=== PATIENT | male | born 1945 | race Caucasian/White ===

== ENCOUNTER 2016-11-20 06:28 | Inpatient (IN) ==
--- NOTE | 2016-11-20 07:07 | History and Physical Update ---
History and Physical Update - History and Physical H&P was reviewed, the patient examined and there: are no changes in the patients condition since last H&P was completed. - Dictation Physical: refer to scanned H&P - Physical Exam Mental Status: alert and oriented Heart: regular rate and rhythm Lung: clear to auscultation
--- NOTE | 2016-11-20 07:53 | EKG Report ---
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
--- NOTE | 2016-11-20 11:29 | Cardiology History & Physical ---
<Rebecca Barrios E - Last Filed: 11/20/16 11:46> Assessment and Plan - Time spent with patient Time spent with patient: Greater than 30 minutes (1) Atrial fibrillation Status: Acute Assessment and plan: SEE PLAN OF CARE LISTED BELOW Current Visit: Yes (2) Hypertension Status: Chronic Assessment and plan: SEE PLAN OF CARE LISTED BELOW Current Visit: Yes (3) Dyslipidemia Status: Chronic Assessment and plan: SEE PLAN OF CARE LISTED BELOW Current Visit: Yes (4) Diabetes Status: Chronic Assessment and plan: SEE PLAN OF CARE LISTED BELOW Current Visit: Yes (5) Sleep apnea Status: Chronic Assessment and plan: SEE PLAN OF CARE LISTED BELOW Current Visit: Yes (6) Obesity (BMI 30.0-34.9) Status: Chronic Assessment and plan: SEE PLAN OF CARE LISTED BELOW Current Visit: Yes (7) Hyperparathyroidism Status: Chronic Assessment and plan: SEE PLAN OF CARE LISTED BELOW Current Visit: Yes History of Present Illness Chief complaint: New onset of atrial fibrillation History of present illness: 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 MCLEAN ENT: DR. FLORENCIO ALMARAZ Olena Mejia, 71WM, previously followed by Dr. Tony Garcia in years past. Risk factors include: Age, hypertension, dyslipidemia, diabetes, sedentary lifestyle , TIAs, obesity. History of untreated sleep apnea, hyperparathyroidism ( parathyroid adenoma). Patient presented to same-day surgery this morning for elective parathyroidectomy. This was discovered when patient calcium level was greater than 10. EKG this morning revealed new onset of atrial fibrillation. Cardiology was asked to evaluate the patient preoperatively. At this time, his parathyroidectomy has been postponed. We will admit patient for further workup of new onset of atrial fibrillation. Denies chest pain, heaviness, tightness. Taking 2 flights of stairs would cause significant fatigue and shortness of breath. Patient has had a cardiac catheterization many years ago and stress test approximately 6-8 years earlier. He received favorable results. Patient also acknowledges that he has felt his heart "skipping beats with PVCs" for many years. He has been treated for TIA on 4-5 occasions. He is currently working with Dr. Awad to treat his sleep apnea. Echocardiogram has been ordered. Repeat EKG on arrival to telemetry. TSH/T4. Check electrolytes as well. Will await the EKG but anticipate initiating sotalol. Patient reports he has no contraindication to blood thinners. Denies a history of vomiting of blood or passing blood in his stool, no history of anemia. I will further discuss with Dr. Garcia and await additional recommendations. ASSESSMENT/PLAN: 1. NEW ONSET ATRIAL FIBRILLATION - rate controlled. Checking labs to include TSH, T4, BMP, magnesium. Echocardiogram. EKG is pending. Once this is been obtained will consider start starting sotalol. 2. HYPERTENSION - will adjust medications accordingly during hospital stay 3. DYSLIPIDEMIA - fasting lipid profile in the morning. Continue statin 4. DIABETES - sliding scale and reincorporate his home medication regimen to include his diabetic medicines 5. UNTREATED SLEEP APNEA - Dr. Awad addressing 6. HISTORY OF TIA - may be candidate for formal anticoagulation or nontraditional anticoagulants. Will give Lovenox 1 7. HYPERPARATHYROIDISM - at this time, patient will be admitted for further workup of new onset of atrial fibrillation. Echocardiogram has been ordered. May consider a rhythm controlling agent such as sotalol once EKG has been repeated. Sleep apnea must be addressed. He currently has a plan in force with Dr. Awad Home Medications Medication Instructions Recorded Confirmed Type Carvedilol [Coreg] 6.25 mg PO BID 08/31/14 11/20/16 History Fenofibrate [Tricor] 145 mg PO DIRECTED 08/31/14 11/20/16 History Furosemide 40 mg PO DAILY 08/31/14 11/20/16 History Insulin Aspart Prot/Insuln Asp 50 unit SUBCUT BID W/MEALS 08/31/14 11/20/16 History [NovoLOG Mix 70-30 Flexpen] Losartan Potassium [Cozaar] 100 mg PO DAILY 08/31/14 11/20/16 History Niacin ER [Niaspan] 500 mg PO DIRECTED 08/31/14 11/20/16 History Vancleave 3 Acid Ethyl Esters [Lovaza] 1 gm PO DAILY 08/31/14 11/20/16 History Potassium Chloride [Klor-Con M20] 10 meq PO Q7DAY 08/31/14 11/20/16 History Pravastatin [Pravachol] 20 mg PO BEDTIME 08/31/14 11/20/16 History Sitagliptin Phos/Metformin HCl 1 each PO BID 08/31/14 11/20/16 History [Janumet 50-1,000 mg Tablet] amLODIPine [Norvasc] 10 mg PO DAILY 08/31/14 11/20/16 History Allopurinol 200 mg PO DAILY 11/19/16 11/20/16 History Allergies Allergy/AdvReac Type Severity Reaction Status Date / Time No Known Allergies Allergy Verified 11/20/16 08:06 Review of systems: REVIEW OF SYSTEMS: - Constitutional Constitutional: Present: Fatigue. Absent: syncope, anorexia, night sweats - EENT Eyes: Absent: blurry vision, loss of vision, diplopia Ears: Absent: decreased hearing, ear pain, ear discharge - Cardiovascular Cardiovascular: Denies: chest pain with exertion. Acknowledges dyspnea on exertion, palpitations. Occasional swelling of his feet appear absent: chest pain with deep breath, claudication - Respiratory Respiratory: Present: [place], denies cough. Absent: wheezing, hemoptysis, change in phlegm color - Gastrointestinal Gastrointestinal: Denies: constipation. Absent: abdominal pain, hematemesis, hematochezia, melena, change in bowel habits, nausea - Genitourinary Genitourinary: Absent: difficulty urinating, dysuria, urinary hesitancy, flank pain - Musculoskeletal Musculoskeletal: Present: back pain Absent: joint swelling, muscle cramps, muscle weakness - Neurological Neurological: Present: normal gait without frequent falls. Absent: dizziness, hemiparesis - Psychiatric Psychiatric: Absent: anxiety, depression, difficulty concentrating - Endocrine Endocrine: Present: fatigue. Absent: cold intolerance, heat intolerance, polyuria, polyphagia, polydipsia - Hematologic/Lymphatic Hematologic/Lymphatic: Present: easy bruising. Absent: easy bleeding -Integumentary Integumentary: Absent: lesions, rashes, skin breakdown Medical,Surgical,& Family Hx - Medical History Cardio: History of: Hypertension No history of: Cardiac Dysrhythmia, CAD, GA Psychological: History of: Depression (period of time after [facility]) No history of: Previous Suicide Attempt Neurology: No history of: Cerebrovascular Accident (history of TIAs on two occasions...years ago), Seizures HEENT: History of: Eye Problem (cataracts;Glasses) Endocrine: History of: Diabetes Mellitus (IDDM), Dyslipidemia, Thyroid Disorder (Tumor Parathyroid Gland) Rheumatology: History of;: Gout Respiratory: No history of: Pneumonia (Pneum Vac 2013), Respiratory Problems (Flu Vac Fall 2015) Musculoskeletal: History of: Back/Neck Problems (lumbar discectomy and fusion of the L4-5) Other: No history of: Anesthesia Reactions, Cancer - Surgical History Cardiac Surgeries: Patient Denies: Cardiac Catheterization Neurologic Surgeries: Patient denies: Neurologic Surgery HEENT Surgeries: Surgical HX of: Eye Surgery (cataract both eyes) Patient denies: Thyroid Surgery (11/20/16 Sched for Parathyroidectomy) Abdominal Surgeries: Surgical HX of: EGD Patient denies: Abdominal Surgery, Colonoscopy, Hernia Repair Reproductive Surgeries: Surgical HX of;: Genitourinary Surgery (Vasectomy ) Patient denies;: Prostate Surgery Orthopedic Surgeries: Surgical HX of;: Spinal Surgery (Laminectomy early ) Patient denies;: Orthopedic Surgery - Family History Family History: Reports;: Family Diabetes (mother), Family Heart Disease ( mother and father), Family Hypertension (mother and father) Denies;: Family Anesthesia Reaction, Family Cancer, Family Stroke - Social History Smoking Status: Never smoker Have you smoked in the last 12 months: No Frequency of Alcohol Use: None Type of Drug Use: None Marital Status: Lives With:: Spouse Functional capacity: independent ambulation Cardiology Physical Exam - Constitutional Vitals: Vital Signs Temp Pulse Resp BP Pulse Ox 98.8 F 82 18 162/102 96 11/20/16 08:10 11/20/16 08:10 11/20/16 08:10 11/20/16 08:10 11/20/16 08:10 Intake and Output 11/19/16 11/20/16 11/20/16 23:59 07:59 15:59 Other: Weight 109.769 kg Patient Weight 11/20/16 23:59 Weight 109.769 kg Exam: General: [Appears well with no apparent distress.] [Pleasant and cooperative. ] [Appears comfortable.] HEENT: [PERRL, normocephalic, atraumatic. Mucous membranes moist. No jaundice noted. Conjunctiva moist and clear, sclerae anicteric] Neck: Unable to assess for JVD due to habitus. Bilobular enlargement in the neck noted No carotid bruit appreciated Cardiac: [Irregularly irregular rhythm, controlled rate [No murmur rub or gallop.] Lungs: [Clear to auscultation without accessory muscle use to assist the respiratory pattern.] Not requiring oxygen Abdomen: Soft, bowel sounds normoactive. Nontender and nondistended. No abdominal bruit or thrill noted. No masses noted. Musculoskeletal: No fluid collection. Decreased range of motion is noted. Extremities: No clubbing, cyanosis noted. [ No edema noted.] Upper extremity pulses 2+. Lower extremity pulses 2+. Capillary refill less than 3 seconds. Skin: No unusual lesions or rashes. No skin breakdown appreciated. Neuro: Awake, alert and oriented 3. Moves all extremities well without hemiparesis or paralysis. No essential tremor is appreciated. Result/EKG - Labs Lab Results: I have reviewed the past 24 hour labs Labs: Laboratory Results - last 24 hr 11/20/16 11/20/16 07:00 07:50 POC Glucose 185 H PTH Intact Intraop 3 Cancelled - EKG EKG results: interpreted by me EKG shows: atrial fibrillation <Rafita Garcia - Last Filed: 11/20/16 13:01> History of Present Illness History of present illness: Cardiology addendum Patient examined chart review discussed with nurse Rebecca hassan. Patient has parathyroid adenoma and hypercalcemia Patient developed new onset atrial fibrillation. No chest pain but complaining of dyspnea and easy fatigability and has been present for at least one week. Patient has untreated obstructive sleep apnea Chronic hypertension Hyperlipidemia Lifetime non-smoker Morbid obesity History of TIA remote Plan Admit to telemetry IV Cardizem Echo Doppler Begin sotalol 80 mg twice daily Begin Eliquis 5 mg twice daily Labs pending Dr. Awad to see for sleep apnea Cardiology Physical Exam - Constitutional Vitals: Vital Signs Temp Pulse Resp BP Pulse Ox 98.8 F 82 18 162/102 96 11/20/16 08:10 11/20/16 08:10 11/20/16 08:10 11/20/16 08:10 11/20/16 08:10 Intake and Output 11/19/16 11/20/16 11/20/16 23:59 07:59 15:59 Other: Weight 109.769 kg Patient Weight 11/20/16 23:59 Weight 109.769 kg Result/EKG - Labs Labs: Laboratory Results - last 24 hr 11/20/16 11/20/16 11/20/16 07:00 07:50 12:13 POC Glucose 185 H 158 H PTH Intact Intraop 3 Cancelled
[2016-11-20] MEDS ORDERED: ACETAMINOPHEN 325 MG TABLET PO PRN (11:39)
[2016-11-20] MEDS ORDERED: ONDANSETRON 4 MG/2 ML VIAL IV PRN (11:39)
[2016-11-20] MEDS ORDERED: GLUCAGON 1 MG VIAL IM PRN (11:39)
[2016-11-20] MEDS ORDERED: DOCUSATE SODIUM 100 MG CAPSULE PO PRN (11:39)
[2016-11-20] MEDS ORDERED: DEXTROSE 50% 25 GM/50 ML SYRINGE IV PRN (11:39)
[2016-11-20] MEDS ORDERED: MORPHINE 2 MG/1 ML SYRINGE IV PRN (11:39)
[2016-11-20] MEDS ORDERED: MAGNESIUM SULF RIDER 4 GM in PREMIX 1 EACH IV PRN (11:39)
[2016-11-20] MEDS ORDERED: MAGNESIUM SULF RIDER 2 GM in PREMIX 1 EACH IV PRN (11:39)
[2016-11-20] MEDS ORDERED: ENOXAPARIN 100 MG/ML SYRINGE SUBCUT ONE (11:59)
[2016-11-20] MEDS ORDERED: FENOFIBRATE 145 MG TABLET PO SCH (12:00)
[2016-11-20] MEDS ORDERED: NIACIN ER 500 MG TABLET PO SCH (12:00)
[2016-11-20] MEDS ORDERED: PANTOPRAZOLE 40 MG TABLET PO ONE (14:10)
[2016-11-20] MEDS: PANTOPRAZOLE 40 MG TABLET PO SCH (14:13)
[2016-11-20 15:26] LABS: Basophils # 0.1 10*3/uL (0.0-0.2); Basophils % 0.7 % (0.0-0.8); Eosinophils # 0.2 10*3/uL (0.0-0.87); Eosinophils % 2.6 % (0.00-10.9); Hematocrit 39.5 VOL% (42.0-52.0); Hemoglobin 13.5 GM/DL (14.0-18.0); Immature Granulocytes % 0.3 %; Immature Granulocytes Absolute 0.02 #; Lymphocytes # 2.3 10*3/uL (1.4-4.0); Mean Corpuscular HGB Conc 34.2 GM/DL (32-36); Mean Corpuscular Hemoglobin 30 PG (27-34); Mean Corpuscular Volume 86.2 FL (87-102); Mean Platelet Volume 9.5 FL (9.6-12.0); Monocytes # 0.6 10*3/uL (0.11-0.8); Monocytes % 8.8 % (1.7-12.7); Neutrophils # 3.8 10*3/uL (1.4-7.4); Neutrophils % 54.6 % (38.7-73.9); Platelet Count 224 T/CUMM (130-400); Red Blood Count 4.58 MC/CUMM (3.8-5.5); Red Cell Distribution Width 13.9 % (9.3-17.3); White Blood Count 6.9 T/CUMM (4-12)
[2016-11-20 16:04] LABS: Albumin 3.5 G/DL (3.4-5.0); Bilirubin,Total 0.5 MG/DL (0.2-1.0); Osmolality,Calculated 285.4 MOS/KG (273-304); Potassium 3.8 MMOL/L (3.5-5.1); Total Protein 7.1 G/DL (6.4-8.3)
[2016-11-20] MEDS: INSULIN ASPART PROTAMINE/ASPART 70/30 100 UNIT/ML SUBCUT SCH (16:27)
--- NOTE | 2016-11-20 18:19 | ECHO Report ---
Vern Mejia Exam Date: 11/20/2016 11:54 Referring Physician: Technologist: Breanna James RDCS Age: 71 Ht (in): 70 Wt (lb): 242 Gender: M Exam Location: [facility] Echo Indications: Atrial fibrillation, Essential (primary) hypertension, Dyslipidemia, IDDM, ED[place]ARD, Parathyroid adenoma BP: 162 / 102 HR: 83 Rhythm: Atrial fibrillation Technical Quality: IMPRESSIONS Left ventricular ejection fraction is estimated at 55-60 %. Mild concentric left ventricular hypertrophy. Mild to moderate bilateral atrial enlargement. Mild mitral valve regurgitation. Trace to mild aortic valve regurgitation. Mild tricuspid valve regurgitation. MEASUREMENTS (Male / Female) Normal Values 2D ECHO LV Diastolic Diameter PLAX 4.6 cm 4.2 - 5.9 / 3.9 - 5.3 cm LV Systolic Diameter PLAX 3.7 cm LV Fractional Shortening PLAX 20.0 % IVS Diastolic Thickness 1.3 cm 0.6 - 1.0 / 0.6 - 0.9 cm LVPW Diastolic Thickness 1.3 cm 0.6 - 1.0 / 0.6 - 0.9 cm RV Internal Dim ED PLAX 3.6 cm Aortic Root Diameter 3.8 cm LA Systolic Diameter LX 5.2 cm 3.0 - 4.0 / 2.7 - 3.8 cm DOPPLER TR Peak Velocity 261.0 cm/s TR Peak Gradient 27.2 mmHg FINDINGS Left Ventricle Normal left ventricular cavity size. Mild concentric left ventricular hypertrophy. Left ventricular ejection fraction is estimated at 55-60 %. Right Ventricle The right ventricle is normal in size and function. Right Atrium Mildly increased right atrial size. Left Atrium Moderately increased left atrial size. Mitral Valve Morphologically normal mitral valve. Mild mitral valve regurgitation. Aortic Valve The aortic valve is trileaflet and has normal motion. Trace to mild aortic valve regurgitation. Tricuspid Valve Morphologically normal tricuspid valve. Mild tricuspid valve regurgitation. Tricuspid regurgitation velocities suggest a PAP of 37 mmHg. Pulmonic Valve Morphologically normal pulmonic valve without significant stenosis. There is no pulmonic regurgitation. Pericardium Normal pericardium without effusion. Aorta Normal ascending aorta dimension. Brendan Roy (Electronically Signed) Final Date: 20 November 2016 18:18
[2016-11-20] MEDS: metFORMIN 500 MG TABLET PO SCH (20:40)
[2016-11-20] MEDS: sitaGLIPtin 100 MG TABLET PO SCH (20:40)
[2016-11-20] MEDS: APIXABAN 5 MG TABLET PO SCH (20:41)
[2016-11-20] MEDS: SOTALOL 80 MG TABLET PO SCH (20:41)
[2016-11-20] MEDS: CARVEDILOL 6.25 MG TABLET PO SCH (20:42)
[2016-11-20] MEDS: PRAVASTATIN 20 MG TABLET PO SCH (20:45)
[2016-11-21 05:33] LABS: Basophils # 0.1 10*3/uL (0.0-0.2); Basophils % 0.8 % (0.0-0.8); Eosinophils # 0.2 10*3/uL (0.0-0.87); Eosinophils % 3.3 % (0.00-10.9); Hematocrit 39.6 VOL% (42.0-52.0); Hemoglobin 13.7 GM/DL (14.0-18.0); Immature Granulocytes % 0.3 %; Immature Granulocytes Absolute 0.02 #; Lymphocytes # 2.4 10*3/uL (1.4-4.0); Lymphocytes % 37.3 % (21.2-54.2); Mean Corpuscular HGB Conc 34.6 GM/DL (32-36); Mean Corpuscular Hemoglobin 30 PG (27-34); Mean Corpuscular Volume 86.8 FL (87-102); Mean Platelet Volume 9.8 FL (9.6-12.0); Monocytes # 0.8 10*3/uL (0.11-0.8); Monocytes % 11.8 % (1.7-12.7); Neutrophils % 46.5 % (38.7-73.9); Platelet Count 223 T/CUMM (130-400); Red Blood Count 4.56 MC/CUMM (3.8-5.5); Red Cell Distribution Width 13.9 % (9.3-17.3); White Blood Count 6.5 T/CUMM (4-12)
[2016-11-21 06:18] LABS: Albumin 3.4 G/DL (3.4-5.0); Osmolality,Calculated 284.3 MOS/KG (273-304); Risk Ratio 4.94; Total Protein 6.7 G/DL (6.4-8.3); VLDL CHOLESTEROL 70.6 MG/DL
--- NOTE | 2016-11-21 07:38 | EKG Report ---
Stationary ECG Study [facility] Test Date: 11/21/2016 7:39:29 AM Pat Name: ROSA ORELLANA Department: Room: 293 Gender: M Nuclear Medicine Chief Technologist: MASHA : 1945 Requested by: Rebecca Reyes Order Number: [id number] Reading MD: STEPHANIE WASHINGTON Intervals [place] Rate: 53 P: 999 DE: 0 QRS: -38 QRSD: 126 T: -12 QT: 397 QTc: 381 Interpretive Statements ATRIAL FIBRILLATION WITH SLOW VENTRICULAR RESPONSE MARKED LEFT AXIS DEVIATION POOR R-WAVE PROGRESSION Electronically Signed On 11-21-16 16:53:14 CDT by STEPHANIE WASHINGTON [email or web address]
[2016-11-21] MEDS: sitaGLIPtin 100 MG TABLET PO SCH ×2 (09:50→22:02)
[2016-11-21] MEDS: PANTOPRAZOLE 40 MG TABLET PO SCH (09:50)
[2016-11-21] MEDS: ALLOPURINOL 100 MG TABLET PO SCH (09:50)
[2016-11-21] MEDS: SOTALOL 80 MG TABLET PO SCH ×2 (09:51→21:44)
[2016-11-21] MEDS: CARVEDILOL 6.25 MG TABLET PO SCH ×2 (09:51→21:45)
[2016-11-21] MEDS: FUROSEMIDE 40 MG TABLET PO SCH (09:51)
[2016-11-21] MEDS: metFORMIN 500 MG TABLET PO SCH ×2 (09:51→22:01)
[2016-11-21] MEDS: amLODIPine 10 MG TABLET PO SCH (09:51)
[2016-11-21] MEDS: OMEGA 3 ACID ETHYL ESTERS 1 GM CAPSULE PO SCH (09:51)
[2016-11-21] MEDS: LOSARTAN 50 MG TABLET PO SCH (09:51)
[2016-11-21] MEDS: APIXABAN 5 MG TABLET PO SCH ×2 (09:52→22:02)
[2016-11-21] MEDS: INSULIN ASPART PROTAMINE/ASPART 70/30 100 UNIT/ML SUBCUT SCH ×2 (09:58→17:54)
--- NOTE | 2016-11-21 12:00 | Cardiology Progress Note ---
Cardiology - PN: Subj Interval history: Cardiology note 71-year-old man With new onset atrial fibrillation and long-standing hypertension. Patient has parathyroid adenoma and hypercalcemia and was scheduled for parathyroidectomy yesterday which was canceled. Comfortable today. Telemetry shows controlled atrial fib ventricular rate around 50 on sotalol Blood pressure 142/80 Irregular rhythm no murmur Clear lungs Abdomen benign No leg edema Echo shows ejection fraction of 55-60% with concentric LVH, moderate atrial enlargement, normal RV function, mild TR Impression New onset atrial fibrillation Long-standing hypertension Diabetes Untreated sleep apnea Parathyroid adenoma with hypercalcemia Plan Sotalol 80 mg twice daily Eliquis [address] Awad to see patient Anticipate TEO guided cardioversion end of week. Patient has been in atrial fibrillation for probably a week or 2 Findings and plan discussed with patient and with his Exam (Progress Note) - Constitutional Vitals: Period Temp Pulse Resp BP Sys/Howard Pulse Ox Last 24 Hr 96.7 F-98.0 F 65-77 16-20 121-156/75-88 90-96 Result/EKG - Labs CBC & BMP: 11/21/16 05:16 11/21/16 05:16 Labs: Laboratory Results - last 24 hr 11/20/16 11/20/16 11/20/16 12:13 15:15 15:15 WBC 6.9 RBC 4.58 Hgb 13.5 L Hct 39.5 L MCV 86.2 L MCH 30 MCHC 34.2 RDW 13.9 Plt Count 224 MPV 9.5 L Neut % (Auto) 54.6 Lymph % (Auto) 33.0 [place] % (Auto) 8.8 Eos % (Auto) 2.6 Baso % (Auto) 0.7 Neut # (Auto) 3.8 Lymph # (Auto) 2.3 [place] # (Auto) 0.6 Eos # (Auto) 0.2 Baso # (Auto) 0.1 Immature Gran % 0.3 Nucleated RBC % 0.0 Immature Gran # 0.02 Nucleated RBCs # 0.00 Immature Plt Fraction 0.0 Sodium 140 Potassium 3.8 Chloride 104 Carbon Dioxide 33 H Anion Gap 6.8 BUN 15 Creatinine 1.60 H GFR Calculation 55 BUN/Creatinine Ratio 9.00 Glucose 200 H POC Glucose 158 H Calculated Osmolality 285.4 Calcium 10.0 Total Bilirubin 0.50 AST 27 ALT 37 Alkaline Phosphatase 66 Total Protein 7.1 Albumin 3.5 Globulin 3.6 H Albumin/Globulin Ratio 0.9 L Triglycerides Cholesterol LDL Cholesterol VLDL Cholesterol HDL Cholesterol Heart Disease Risk Ratio Free T4 TSH 3rd Generation 11/20/16 11/20/16 11/20/16 15:15 15:15 15:51 WBC RBC Hgb Hct MCV MCH MCHC RDW Plt Count MPV Neut % (Auto) Lymph % (Auto) [place] % (Auto) Eos % (Auto) Baso % (Auto) Neut # (Auto) Lymph # (Auto) [place] # (Auto) Eos # (Auto) Baso # (Auto) Immature Gran % Nucleated RBC % Immature Gran # Nucleated RBCs # Immature Plt Fraction Sodium Potassium Chloride Carbon Dioxide Anion Gap BUN Creatinine GFR Calculation BUN/Creatinine Ratio Glucose POC Glucose 186 H Calculated Osmolality Calcium Total Bilirubin AST ALT Alkaline Phosphatase Total Protein Albumin Globulin Albumin/Globulin Ratio Triglycerides Cholesterol LDL Cholesterol VLDL Cholesterol HDL Cholesterol Heart Disease Risk Ratio Free T4 1.10 TSH 3rd Generation 1.890 11/20/16 11/21/16 11/21/16 19:37 05:16 05:16 WBC 6.5 RBC 4.56 Hgb 13.7 L Hct 39.6 L MCV 86.8 L MCH 30 MCHC 34.6 RDW 13.9 Plt Count 223 MPV 9.8 Neut % (Auto) 46.5 Lymph % (Auto) 37.3 [place] % (Auto) 11.8 Eos % (Auto) 3.3 Baso % (Auto) 0.8 Neut # (Auto) 3.0 Lymph # (Auto) 2.4 [place] # (Auto) 0.8 Eos # (Auto) 0.2 Baso # (Auto) 0.1 Immature Gran % 0.3 Nucleated RBC % 0.0 Immature Gran # 0.02 Nucleated RBCs # 0.00 Immature Plt Fraction 0.0 Sodium 141 Potassium 4.0 Chloride 105 Carbon Dioxide 27 Anion Gap 13.0 BUN 15 Creatinine 1.60 H GFR Calculation 55 BUN/Creatinine Ratio 9.00 Glucose 152 H POC Glucose 98 Calculated Osmolality 284.3 Calcium 10.0 Total Bilirubin 1.00 AST 23 ALT 30 Alkaline Phosphatase 59 Total Protein 6.7 Albumin 3.4 Globulin 3.3 Albumin/Globulin Ratio 1.0 L Triglycerides 353 H Cholesterol 158 LDL Cholesterol 84.0 VLDL Cholesterol 70.6 HDL Cholesterol 32 L Heart Disease Risk Ratio 4.94 Free T4 TSH 3rd Generation 11/21/16 08:04 WBC RBC Hgb Hct MCV MCH MCHC RDW Plt Count MPV Neut % (Auto) Lymph % (Auto) [place] % (Auto) Eos % (Auto) Baso % (Auto) Neut # (Auto) Lymph # (Auto) [place] # (Auto) Eos # (Auto) Baso # (Auto) Immature Gran % Nucleated RBC % Immature Gran # Nucleated RBCs # Immature Plt Fraction Sodium Potassium Chloride Carbon Dioxide Anion Gap BUN Creatinine GFR Calculation BUN/Creatinine Ratio Glucose POC Glucose 134 H Calculated Osmolality Calcium Total Bilirubin AST ALT Alkaline Phosphatase Total Protein Albumin Globulin Albumin/Globulin Ratio Triglycerides Cholesterol LDL Cholesterol VLDL Cholesterol HDL Cholesterol Heart Disease Risk Ratio Free T4 TSH 3rd Generation
--- NOTE | 2016-11-21 13:51 | Sleep Medicine Consult ---
Assessment and Plan (1) Treatment-emergent central sleep apnea Status: Acute Assessment and plan: Mr. Mejia is currently scheduled to undergo BiPAP/ASV titration. However, since he is now hospitalized and has known obstructive sleep apnea with treatment emergent central sleep apnea with use of CPAP, I will order an auto BiPAP to determine the effectivness of treatment. The sleep technicians will have him fit for either a nasal mask or full face mask based on his preference. I receommend that he try watching television or reading with use of his device on to help acclimate to therapy. He verbalized understanding and the importance of treatment of his obstructive sleep apnea and wishes to proceed with treatment. Current Visit: Yes (2) Sleep apnea Status: Chronic Current Visit: Yes History of Present Illness Chief complaint: hx EDGARD History of present illness: Mr. Mejia is a 71 year old male who was initially admitted for outpatient parathyroidectomy yesterday but on routine EKG, was found to be in atrial fibrillation. He had no known history of atrial fibrillation but had a significant medical history positive for hyperlipidemia, diabetes, history of TIAs and obesity. He was admitted and is now under the care of Dr. augustine. He is a known patient of [facility] and actually was last seen in clinic in September of this year. He was originally diagnosed with severe obstructive sleep apnea in 2000 with a diagnostic respiratory disturbance index of 51.5 along with oxygen desaturations as low as 81%. BiPAP therapy was prescribed but unfortunately, he was intolerant of therapy. He did not maintain routine follow-up in sleep clinic but recently returned for repeat evaluation at the request of his primary provider. He was set up for repeat polysomnography on October 26, 2016 and again tested positive for moderate obstructive sleep apnea with a diagnostic AHI of 25 along with oxygen desaturations. With CPAP titration, he developed treatment emergent central sleep apnea that was therefore set up for repeat titration study using BiPAP or adaptive servo ventilation. The titration study was scheduled for early next month. His main complaints in regards to BiPAP therapy more mask issues. He never could find a mask that would allow him to sleep on his side and seal throughout the night and not cause more sleep disruption. His is accompanied by his today. Home Medications Medication Instructions Recorded Confirmed Type Carvedilol [Coreg] 6.25 mg PO BID W/MEALS 08/31/14 11/20/16 History Furosemide 40 mg PO DAILY 08/31/14 11/20/16 History Insulin Aspart Prot/Insuln Asp 50 unit SUBCUT BID W/MEALS 08/31/14 11/20/16 History [NovoLOG Mix 70-30 Flexpen] Losartan Potassium [Cozaar] 100 mg PO DAILY 08/31/14 11/20/16 History Niacin ER [Niaspan] 500 mg PO MOWEFR 08/31/14 11/20/16 History [place] 3 Acid Ethyl Esters [Lovaza] 1 gm PO DAILY 08/31/14 11/20/16 History Potassium Chloride [Klor-Con M20] 10 meq PO Q708/31/14 11/20/16 History Pravastatin [Pravachol] 20 mg PO DAILY 08/31/14 11/20/16 History Sitagliptin Phos/Metformin HCl 1 each PO BID 08/31/14 11/20/16 History [Janumet 50-1,000 mg Tablet] amLODIPine [Norvasc] 10 mg PO DAILY 08/31/14 11/20/16 History Allopurinol 200 mg PO DAILY 11/19/16 11/20/16 History Fenofibrate [Tricor] 145 mg PO MOWEFR 11/20/16 11/20/16 History Allergies Allergy/AdvReac Type Severity Reaction Status Date / Time No Known Allergies Allergy Verified 11/20/16 08:06 - Constitutional Constitutional: Present: daytime sleepiness, fatigue, stops breathing during sleep - EENT Nose, mouth and throat: Absent: nasal congestion, sinus pressure, sore throat - Cardiovascular Cardiovascular: Present: dyspnea on exertion, palpitations. Absent: chest pain at rest, chest pain with activity, dyspnea, orthopnea - Respiratory Respiratory: Present: dyspnea on exertion, snoring. Absent: cough, wheezing - Gastrointestinal Gastrointestinal: Present: heartburn. Absent: constipation, diarrhea, vomiting - Genitourinary Genitourinary: Present: urinary frequency. Absent: dysuria - Musculoskeletal Musculoskeletal: Present: arthralgias. Absent: muscle weakness - Neurological Neurological: Absent: behavioral changes, dizziness, numbness, syncope - Psychiatric Psychiatric: Present: depression. Absent: anxiety - Endocrine Endocrine: Present: fatigue Exam (Pulmonay) H&P - Constitutional Vitals: Period Temp Pulse Resp BP Sys/Howard Pulse Ox Last 24 Hr 96.7 F-98.0 F 65-72 18-20 121-156/75-88 90-95 General appearance: no acute distress, over weight - Head Head exam: Present: normocephalic, atraumatic - Eye Pupils: Present: FREYA - ENT ENT exam: Present: other (Mallampati class III) - Expanded ENT Exam ENT Exam Mouth exam: Present: moist Throat exam: Absent: post pharyngeal edema, post pharyngeal erythema - Neck Neck exam: Absent: lymphadenopathy, thyromegaly - Respiratory Respiratory exam: Present: clear to auscultation bilaterally. Absent: rales, rhonchi, wheezes - Cardiovascular Cardiovascular exam: Present: irregular rhythm. Absent: diastolic murmur, systolic murmur - GI/Abdominal GI/Abdominal exam: Present: normal bowel sounds. Absent: distended, tenderness - Extremities Exam Extremities exam: Present: normal capillary refill, full ROM. Absent: calf tenderness, edema - Neurological Exam Neurological exam: Present: alert, oriented X3, normal gait - Psychiatric Psychiatric exam: Present: normal affect, normal mood - Skin Skin exam: Present: warm, dry. Absent: erythema Medical,Surgical,& Family Hx - Medical History Cardio: History of: Hypertension No history of: Cardiac Dysrhythmia, CAD, [place] Psychological: History of: Depression (period of time after shelter) No history of: Previous Suicide Attempt Neurology: No history of: Cerebrovascular Accident (history of TIAs on two occasions...years ago), Seizures HEENT: History of: Eye Problem (cataracts;Glasses) Endocrine: History of: Diabetes Mellitus (IDDM), Diabetes Mellitus (NIDDM), Dyslipidemia, Thyroid Disorder (Tumor Parathyroid Gland) Rheumatology: History of;: Gout Respiratory: History of: Obstructive Sleep Apnea No history of: Pneumonia (Pneum Vac 2013), Respiratory Problems (Flu Vac Fall 2016) Musculoskeletal: History of: Back/Neck Problems (lumbar discectomy and fusion of the L4-5) No history of: Amputation Other: No history of: Anesthesia Reactions, Cancer - Surgical History Cardiac Surgeries: Sugical HX of: Cardiac Catheterization Patient Denies: Cardiac Surgery Thoracic Surgeries: Patient denies;: Lobectomy Neurologic Surgeries: Patient denies: Neurologic Surgery HEENT Surgeries: Surgical HX of: Eye Surgery (cataract both eyes) Patient denies: Thyroid Surgery (11/20/16 Sched for Parathyroidectomy) Abdominal Surgeries: Surgical HX of: EGD Patient denies: Abdominal Surgery, Colonoscopy, Hernia Repair Reproductive Surgeries: Surgical HX of;: Genitourinary Surgery (Vasectomy ) Patient denies;: Prostate Surgery Orthopedic Surgeries: Surgical HX of;: Spinal Surgery (Laminectomy early ) Patient denies;: Orthopedic Surgery - Family History Family History: Reports;: Family Diabetes (mother), Family Heart Disease ( mother and father), Family Hypertension (mother and father) Denies;: Family Anesthesia Reaction, Family Cancer, Family Stroke - Social History Smoking Status: Never smoker Frequency of Alcohol Use: None Type of Drug Use: None Results - Labs CBC & BMP: 11/21/16 05:16 11/21/16 05:16
[2016-11-21] MEDS ORDERED: FENOFIBRATE 145 MG TABLET PO SCH (16:58)
[2016-11-21] MEDS ORDERED: NIACIN ER 500 MG TABLET PO SCH (21:00)
[2016-11-21] MEDS: PRAVASTATIN 20 MG TABLET PO SCH (22:02)
[2016-11-22 06:16] LABS: Hematocrit 39.3 VOL% (42.0-52.0); Hemoglobin 13.1 GM/DL (14.0-18.0); Red Blood Count 4.49 MC/CUMM (3.8-5.5); White Blood Count 7.2 T/CUMM (4-12)
[2016-11-22 06:17] LABS: Basophils % 0.6 % (0.0-0.8); Eosinophils # 0.2 10*3/uL (0.0-0.87); Eosinophils % 3.3 % (0.00-10.9); Immature Granulocytes % 0.3 %; Immature Granulocytes Absolute 0.02 #; Lymphocytes # 3.1 10*3/uL (1.4-4.0); Lymphocytes % 43.3 % (21.2-54.2); Mean Corpuscular HGB Conc 33.3 GM/DL (32-36); Mean Corpuscular Hemoglobin 29 PG (27-34); Mean Corpuscular Volume 87.5 FL (87-102); Monocytes # 0.6 10*3/uL (0.11-0.8); Monocytes % 8.6 % (1.7-12.7); Neutrophils # 3.2 10*3/uL (1.4-7.4); Neutrophils % 43.9 % (38.7-73.9); Platelet Count 236 T/CUMM (130-400)
[2016-11-22 06:49] LABS: Calcium 9.7 MG/DL (8.5-10.1); Magnesium 1.9 MG/DL (1.8-2.4); Osmolality,Calculated 277.5 MOS/KG (273-304); Potassium 3.7 MMOL/L (3.5-5.1)
[2016-11-22] MEDS: INSULIN ASPART PROTAMINE/ASPART 70/30 100 UNIT/ML SUBCUT SCH ×2 (08:21→19:11)
[2016-11-22] MEDS: SOTALOL 80 MG TABLET PO SCH ×2 (08:22→21:39)
[2016-11-22] MEDS: amLODIPine 10 MG TABLET PO SCH (08:22)
[2016-11-22] MEDS: CARVEDILOL 6.25 MG TABLET PO SCH ×2 (08:22→21:40)
[2016-11-22] MEDS: metFORMIN 500 MG TABLET PO SCH ×2 (08:24→21:40)
[2016-11-22] MEDS: LOSARTAN 50 MG TABLET PO SCH (08:24)
[2016-11-22] MEDS: APIXABAN 5 MG TABLET PO SCH ×2 (08:24→21:40)
[2016-11-22] MEDS: FUROSEMIDE 40 MG TABLET PO SCH (08:25)
[2016-11-22] MEDS: ALLOPURINOL 100 MG TABLET PO SCH (08:25)
[2016-11-22] MEDS: OMEGA 3 ACID ETHYL ESTERS 1 GM CAPSULE PO SCH (08:26)
[2016-11-22] MEDS: sitaGLIPtin 100 MG TABLET PO SCH ×2 (08:27→21:40)
[2016-11-22] MEDS: PANTOPRAZOLE 40 MG TABLET PO SCH (08:27)
--- NOTE | 2016-11-22 18:50 | Cardiology Progress Note ---
Liu Beth Vanessa RN, am scribing for, and in the presence of, Rafita Garcia MD 18:50. Assessment and Plan - Time spent with patient Time spent with patient: Greater than 30 minutes (1) Atrial fibrillation Status: Acute Assessment and plan: SEE PLAN OF CARE LISTED BELOW. Current Visit: Yes (2) Diabetes Status: Chronic Assessment and plan: SEE PLAN OF CARE LISTED BELOW. Current Visit: Yes (3) Dyslipidemia Status: Chronic Assessment and plan: SEE PLAN OF CARE LISTED BELOW. Current Visit: Yes (4) Hyperparathyroidism Status: Chronic Assessment and plan: SEE PLAN OF CARE LISTED BELOW. Current Visit: Yes (5) Hypertension Status: Chronic Assessment and plan: SEE PLAN OF CARE LISTED BELOW. Current Visit: Yes (6) Obesity (BMI 30.0-34.9) Status: Chronic Assessment and plan: SEE PLAN OF CARE LISTED BELOW. Current Visit: Yes (7) Sleep apnea Status: Chronic Assessment and plan: SEE PLAN OF CARE LISTED BELOW. Current Visit: Yes Cardiology - PN: Subj Interval history: Assurance Manager: Dr. Garcia Summary: Mr. Mejia, 71-year-old WM, with risk factor significant for: ge, hypertension, dyslipidemia, diabetes, sedentary lifestyle, obesity. Past medical history includes TIAs, untreated sleep apnea, hyperparathyroidism ( parathyroid adenoma). Patient was admitted to [facility] telemetry on 11/20 after presenting to same day surgery department for elective parathyroidectomy, calcium level greater than 10 noted, and EKG demonstrated new onset atrial fibrillation. Parathyroidectomy was postponed. Echocardiogram shows EF 55-60% , concentric LVH, mild to moderate biatrial enlargement, mild TR with PA pressure 37 mmHg. He has been started on sotalol 80 mg twice daily, and formal anticoagulation for stroke prevention with Eliquis. Atrial fibrillation with ventricular response 60s-70s, occasional 3 second pauses. Anticipating TEO guided cardioversion at end of week. October: Sleep medicine consult - Dr. Awad evaluated today and has a plan in place. Appreciate his assistance. Mr. Mejia is comfortable and without complaint. Vitals stable. Remains in atrial fibrillation. Lab data today: WBC 7200 Hemoglobin 13.1 hematocrit 39.3 Sodium 139 chloride 103 CO2 28 Potassium 3.7 magnesium 1.9 BUN 19 creatinine 1.7 Triglycerides 353 total cholesterol 158 HDL 32 Cardiology addendum. The patient has failed to convert with sotalol 80 mg twice daily and Eliquis. He has been atrial fibrillation for at least 1 or 2 weeks. I have recommended TEO guided cardioversion. Procedure discussed with patient with nurse Nalini present for the entire discussion. All questions answered. Risks and benefits reviewed. He agrees to proceed. Plan TEO guided cardioversion in a.m. Continue sotalol and Eliquis Exam (Progress Note) - Constitutional Vitals: Period Temp Pulse Resp BP Sys/Howard Pulse Ox Last 24 Hr 97 F-98.1 F 50-77 16-20 104-140/66-87 95-98 Exam: General: Appears well with no apparent distress. Pleasant and cooperative. Appears comfortable. HEENT: PERRL, normocephalic, atraumatic. Mucous membranes moist. No jaundice noted. Conjunctiva moist and clear, sclerae anicteric Neck: Unable to assess for JVD due to habitus. Bilobular enlargement in the neck noted. No carotid bruit appreciated Cardiac: Irregularly irregular rhythm, bradycardia No murmur rub or gallop. Lungs:Clear to auscultation. No rhonchi, stridor, wheeze. Not requiring oxygen Abdomen: Soft, bowel sounds normoactive. Nontender and nondistended. No abdominal bruit or thrill noted. No masses noted. Musculoskeletal: No fluid collection. Decreased range of motion is noted. Extremities: No clubbing, cyanosis noted. No edema noted. Upper extremity pulses 2+. Lower extremity pulses 2+. Capillary refill less than 3 seconds. Skin: No unusual lesions or rashes. No skin breakdown appreciated. Skin is warm and dry. Neuro: Awake, alert and oriented 3. Moves all extremities well without hemiparesis or paralysis. No essential tremor is appreciated. Result/EKG - Labs CBC & BMP: 11/22/16 03:49 11/22/16 03:49 Lab Results: I have reviewed the past 24 hour labs Labs: Laboratory Results - last 24 hr 11/21/16 11/22/16 11/22/16 18:05 03:49 03:49 WBC 7.2 RBC 4.49 Hgb 13.1 L Hct 39.3 L MCV 87.5 MCH 29 MCHC 33.3 RDW 14.0 Plt Count 236 MPV 10.0 Neut % (Auto) 43.9 Lymph % (Auto) 43.3 [place] % (Auto) 8.6 Eos % (Auto) 3.3 Baso % (Auto) 0.6 Neut # (Auto) 3.2 Lymph # (Auto) 3.1 [place] # (Auto) 0.6 Eos # (Auto) 0.2 Baso # (Auto) 0.0 Immature Gran % 0.3 Nucleated RBC % 0.0 Immature Gran # 0.02 Nucleated RBCs # 0.00 Immature Plt Fraction 0.0 Sodium 139 Potassium 3.7 Chloride 103 Carbon Dioxide 28 Anion Gap 11.7 BUN 19 H Creatinine 1.70 H GFR Calculation 51 BUN/Creatinine Ratio 11.00 Glucose 82 POC Glucose 131 H Calculated Osmolality 277.5 Calcium 9.7 Magnesium 1.9 11/22/16 07:39 WBC RBC Hgb Hct MCV MCH MCHC RDW Plt Count MPV Neut % (Auto) Lymph % (Auto) [place] % (Auto) Eos % (Auto) Baso % (Auto) Neut # (Auto) Lymph # (Auto) [place] # (Auto) Eos # (Auto) Baso # (Auto) Immature Gran % Nucleated RBC % Immature Gran # Nucleated RBCs # Immature Plt Fraction Sodium Potassium Chloride Carbon Dioxide Anion Gap BUN Creatinine GFR Calculation BUN/Creatinine Ratio Glucose POC Glucose 90 Calculated Osmolality Calcium Magnesium - EKG EKG results: interpreted by me, no acute changes EKG shows: atrial fibrillation Jose Beth Thomas, MD, personally performed the services described in this documentation, ascribed by Aide Hatfield RN in my presence, and it is both accurate and complete 850 .
--- NOTE | 2016-11-22 18:51 | History and Physical Update ---
Sedation H&P Update - History and Physical H&P was reviewed, the patient examined and there: are no changes in the patients condition since last H&P was completed. - Dictation Physical: refer to H&P completed by admitting physician - Sedation Plan for Sedation: moderate Patient Consent: Risks and benefits were discussed with patient,including infection, ASA Class: II Airway Assessment: Class II: Soft palate, uvula, fauces visible
[2016-11-22] MEDS: PRAVASTATIN 20 MG TABLET PO SCH (21:40)
[2016-11-23 05:15] LABS: Basophils % 0.6 % (0.0-0.8); Eosinophils # 0.2 10*3/uL (0.0-0.87); Eosinophils % 3.1 % (0.00-10.9); Hematocrit 38.8 VOL% (42.0-52.0); Hemoglobin 13.3 GM/DL (14.0-18.0); Immature Granulocytes % 0.1 %; Immature Granulocytes Absolute 0.01 #; Lymphocytes # 2.6 10*3/uL (1.4-4.0); Lymphocytes % 37.1 % (21.2-54.2); Mean Corpuscular HGB Conc 34.3 GM/DL (32-36); Mean Corpuscular Hemoglobin 30 PG (27-34); Mean Corpuscular Volume 86.4 FL (87-102); Mean Platelet Volume 9.7 FL (9.6-12.0); Monocytes # 0.7 10*3/uL (0.11-0.8); Neutrophils # 3.5 10*3/uL (1.4-7.4); Neutrophils % 49.1 % (38.7-73.9); Platelet Count 228 T/CUMM (130-400); Red Blood Count 4.49 MC/CUMM (3.8-5.5); White Blood Count 7.1 T/CUMM (4-12)
[2016-11-23 05:46] LABS: Magnesium 1.9 MG/DL (1.8-2.4); Osmolality,Calculated 282.3 MOS/KG (273-304); Potassium 3.7 MMOL/L (3.5-5.1)
[2016-11-23] MEDS ORDERED: SODIUM CHLORIDE 0.9% 1,000 ML IV SCH (07:15)
[2016-11-23] MEDS ORDERED: MEPERIDINE 25 MG/1 ML VIAL ONE (07:27)
[2016-11-23] MEDS ORDERED: MIDAZOLAM 10 MG/2 ML VIAL ONE (07:28)
[2016-11-23] MEDS ORDERED: MIDAZOLAM 2 MG/2 ML VIAL IV ONE (07:38)
--- NOTE | 2016-11-23 08:08 | Event Note ---
Event note Synchronized cardioversion procedure note Preop diagnosis new onset atrial fibrillation Postop diagnosis same The patient developed new onset atrial fibrillation and failed to convert with sotalol 80 mg twice daily and Eliquis 5 mg twice daily. He has been in atrial fib for about 2 weeks. TEO guided cardioversion discussed the patient with his Fiorella. All questions answered and consent form was signed. TEO showed no left atrial appendage clot and no mobile debris in the descending aorta with good ventricular function. Continuous O2 sat monitoring was performed. The patient received a total dose of 6 mg IV Versed to achieve and maintain adequate anesthesia throughout the procedure. Using the biphasic Zoll, apical and sternal patches were placed. Successful synchronized cardioversion was achieved in the first attempt with 200 J. He promptly returned to steady sinus rhythm. No bagging was required. Currently the blood pressure is 130/70 the pulse is 46 and regular and O2 sat is 97% on 4 L nasal cannula. The patient is beginning to lighten. There were no obvious complications. Plan EKG now Continue sotalol 80 mg twice daily Continue Eliquis 5 mg twice daily No driving for 24 hours Home later today CPAP nightly Findings and plan discussed with patient's Fiorella
--- NOTE | 2016-11-23 08:12 | EKG Report ---
Stationary ECG Study [facility] Test Date: 11/23/2016 8:09:24 AM Pat Name: ROSA ORELLANA Department: Room: 293 Gender: M Microscopist: : 1945 Requested by: Rafita Garcia Order Number: [id number] Reading MD: RAFITA GARCIA Intervals [place] Rate: 48 P: 60 OK: 221 QRS: -64 QRSD: 138 T: 209 QT: 447 QTc: 413 Interpretive Statements SINUS BRADYCARDIA WITH FIRST DEGREE AV BLOCK ABNORMAL LEFT AXIS DEVIATION NONSPECIFIC INTRAVENTRICULAR CONDUCTION BLOCK Electronically Signed On 11-23-16 15:59:51 CDT by RAFITA GARCIA [email or web address]
[2016-11-23] MEDS ORDERED: SODIUM CHLORIDE 0.9% 500 ML IV SCH (08:32)
[2016-11-23] MEDS: INSULIN ASPART PROTAMINE/ASPART 70/30 100 UNIT/ML SUBCUT SCH (09:37)
[2016-11-23] MEDS: metFORMIN 500 MG TABLET PO SCH (10:23)
[2016-11-23] MEDS: ALLOPURINOL 100 MG TABLET PO SCH (10:24)
[2016-11-23] MEDS: amLODIPine 10 MG TABLET PO SCH (10:24)
[2016-11-23] MEDS: FUROSEMIDE 40 MG TABLET PO SCH (10:25)
[2016-11-23] MEDS: LOSARTAN 50 MG TABLET PO SCH (10:25)
[2016-11-23] MEDS: SOTALOL 80 MG TABLET PO SCH (10:26)
[2016-11-23] MEDS: sitaGLIPtin 100 MG TABLET PO SCH (10:27)
[2016-11-23] MEDS: PANTOPRAZOLE 40 MG TABLET PO SCH (10:28)
[2016-11-23] MEDS: APIXABAN 5 MG TABLET PO SCH (10:28)
[2016-11-23] MEDS: OMEGA 3 ACID ETHYL ESTERS 1 GM CAPSULE PO SCH (10:29)
[2016-11-23] MEDS: CARVEDILOL 6.25 MG TABLET PO SCH (10:29)
[2016-11-23 11:57] VITALS: BP 127/71
--- NOTE | 2016-11-23 13:19 | Discharge Summary ---
Hospital Course - Hospital Course Hospital Course: INFANTRYMAN:DR. GARCIA PCP: DR. MARCUS ENT: DR. FLORENCIO ALMARAZ Mr. Mejia, 71WM, previously followed by Dr. Tony Garcia in years past. Risk factors include: Age, hypertension, dyslipidemia, diabetes, sedentary lifestyle , TIAs, obesity. History of untreated sleep apnea, hyperparathyroidism ( parathyroid adenoma). Patient presented to same-day surgery this morning for elective parathyroidectomy. This was discovered when patient calcium level was greater than 10. EKG this morning revealed new onset of atrial fibrillation. Cardiology was asked to evaluate the patient preoperatively. At this time, his parathyroidectomy has been postponed. Sotalol 80 mg twice daily was added to patient's medication regimen. Eliquis 5 mg twice daily was also initiated for stroke prevention. Patient was unable to convert chemically with sotalol. Patient was scheduled for TEO and cardioversion November 23, 2016. TEO showed no left atrial appendage clot and no mobile debris in the descending aorta with good ventricular function. The patient received a total dose of 6 mg IV Versed to achieve and maintain adequate anesthesia throughout the procedure. Successful synchronized cardioversion was achieved in the first attempt with 200 J. He promptly returned to steady sinus rhythm. Post cardioversion patient was transported back to the telemetry unit in stable condition. He has remained in normal sinus rhythm. This hospitalization, Dr. Awad was consulted for his untreated sleep apnea. He will be scheduled a follow-up appointment with him outpatient. Patient has tolerated cardioversion well without any complications. At this point, patient is anxious for discharge home. Having felt that he has not maximal medical therapy, he will be discharged home in stable condition. He has been instructed not to drive for the next 24 hours. He has also been instructed not to operate any heavy machinery. He and his both verbalized understanding of this. He will be scheduled to follow with Dr. Garcia in 1-2 weeks in the cardiology clinic. At that time, stress test will be considered. If patient has remained in normal sinus rhythm per EKG and has a normal stress test he will then be stable for parathyroidectomy. Patient verbalizes understanding of discharge instructions and discharge medications. - Time spent with patient Time with patient DS: Greater than 30 minutes Diagnosis - Discharge Diagnosis (1) Atrial fibrillation Status: Resolved (2) Diabetes Status: Chronic (3) Dyslipidemia Status: Chronic (4) Hyperparathyroidism Status: Chronic (5) Hypertension Status: Chronic (6) Obesity (BMI 30.0-34.9) Status: Chronic (7) Sleep apnea Status: Chronic Specialty Discharge - Follow Up or Referrals Follow up with: Bernice Awad MD [Physician] - Rafita Garcia MD [Physician] - 1 Week (ekg and cbc) Discharge Plan - Discharge Data Disposition: Disch To Home/Self Care Condition at Discharge: Stable Discharge Diet: heart healthy Activity: resume usual activities as tolerated Hygiene: no restrictions Weight Bearing at Discharge: weight bear as tolerated Driving: not for (24 hours) Contact your physician if you experience:: fever over 101, Difficulty voiding, Redness or swelling, Nausea/Vomiting, Shortness of breath, Bleeding, pain uncontrolled by pain medications - Discharge Medications New Apixaban [Eliquis] 5 mg PO BID #60 tablet Sotalol [Betapace] 80 mg PO BID #60 tablet Continue Pravastatin [Pravachol] 20 mg PO DAILY Niacin ER [Niaspan] 500 mg PO MOWEFR amLODIPine [Norvasc] 10 mg PO DAILY Sitagliptin Phos/Metformin HCl [Janumet 50-1,000 mg Tablet] 1 each PO BID Potassium Chloride [Klor-Con M20] 10 meq PO Q7DAY [place] 3 Acid Ethyl Esters [Lovaza] 1 gm PO DAILY Furosemide 40 mg PO DAILY Losartan Potassium [Cozaar] 100 mg PO DAILY Insulin Aspart Prot/Insuln Asp [NovoLOG Mix 70-30 FlexPen] 50 unit SUBCUT BID W/MEALS Allopurinol 200 mg PO DAILY Fenofibrate [Tricor] 145 mg PO MOWEFR Discontinued Carvedilol [Coreg] 6.25 mg PO BID W/MEALS - Follow Up or Referral - Forms/Instructions Exam - Constitutional Vitals: Period Temp Pulse Resp BP Sys/[place]ard Pulse Ox Last 24 Hr 96.8 F-97.6 F 55-77 18-20 119-156/66-92 94-96 Exam: General: Appears well with no apparent distress. Pleasant and cooperative. Appears comfortable. HEENT: PERRL, normocephalic, atraumatic. Mucous membranes moist. No jaundice noted. Conjunctiva moist and clear, sclerae anicteric Neck: No JVD/HJR, no thyromegaly or lymphadenopathy noted. No carotid bruit appreciated Cardiac: Regular rate and rhythm. No murmur rub or gallop. Lungs: Clear to auscultation without accessory muscle use to assist the respiratory pattern. Not requiring oxygen. Abdomen: Soft, bowel sounds normoactive. Nontender and nondistended. No abdominal bruit or thrill noted. No masses noted. Extremities: No clubbing, cyanosis noted. No edema noted. Upper extremity pulses 2+. Lower extremity pulses 2+. Capillary refill less than 3 seconds. Skin: No unusual lesions or rashes. No skin breakdown appreciated. Neuro: Awake, alert and oriented 3. Moves all extremities well without hemiparesis or paralysis. No essential tremor is appreciated. Discharge Results Procedures and tests throughout hospitalization: Pending Orders 11/23/16 06:47 CL heart Routine Labs on day of discharge: Labs from last 24 hours 11/23/16 11/23/16 11/23/16 09:15 04:28 04:28 WBC 7.1 RBC 4.49 Hgb 13.3 L Hct 38.8 L MCV 86.4 L MCH 30 MCHC 34.3 RDW 14.0 Plt Count 228 MPV 9.7 Neut % (Auto) 49.1 Lymph % (Auto) 37.1 [place] % (Auto) 10.0 Eos % (Auto) 3.1 Baso % (Auto) 0.6 Neut # (Auto) 3.5 Lymph # (Auto) 2.6 [place] # (Auto) 0.7 Eos # (Auto) 0.2 Baso # (Auto) 0.0 Immature Gran % 0.1 Nucleated RBC % 0.0 Immature Gran # 0.01 Nucleated RBCs # 0.00 Immature Plt Fraction 0.0 Sodium 141 Potassium 3.7 Chloride 106 Carbon Dioxide 25 Anion Gap 13.7 BUN 18 Creatinine 1.50 H GFR Calculation 60 BUN/Creatinine Ratio 12.00 Glucose 96 POC Glucose 132 H Calculated Osmolality 282.3 Calcium 10.0 Magnesium 1.9 11/22/16 20:29 WBC RBC Hgb Hct MCV MCH MCHC RDW Plt Count MPV Neut % (Auto) Lymph % (Auto) [place] % (Auto) Eos % (Auto) Baso % (Auto) Neut # (Auto) Lymph # (Auto) [place] # (Auto) Eos # (Auto) Baso # (Auto) Immature Gran % Nucleated RBC % Immature Gran # Nucleated RBCs # Immature Plt Fraction Sodium Potassium Chloride Carbon Dioxide Anion Gap BUN Creatinine GFR Calculation BUN/Creatinine Ratio Glucose POC Glucose 142 H Calculated Osmolality Calcium Magnesium - Imaging and Cardiology Cardiology Procedure: report reviewed by me DS: Provider Date of admission: 11/21/16 09:26 Primary care physician: Marv Marcus MD Attending physician on admission: Rafita Garcia MD Consults: 11/21/16 11:55 Consult to Sleep Center [CONS] Routine Reason for Sleep Center: Sleep Center Physician Discharging clinician: Elsi Man NP Expected date of discharge: 11/23/16
--- NOTE | 2016-11-23 19:22 | ECHO Report ---
Vern Mejia Exam Date: 11/23/2016 07:15 Referring Physician: Technologist: Breanna James RDCS Age: 71 Ht (in): 70 Wt (lb): 244 Gender: M Exam Location: [facility] Echo Pre-op Dx: cardioversion Post-op Dx: BP: 139 / 77 HR: 69 Rhythm: Atrial fibrillation Technical Quality: Good Specimens Taken Devices Implanted Medications Complications Estimated Blood Loss Proc. Components IMPRESSIONS Left ventricular ejection fraction is estimated at 55 %. Normal right ventricular size and systolic function. Moderately increased right atrial size. Moderately increased left atrial size. No thrombus visualized in the left atrial appendage. Normal interatrial septum. Mildly thickened mitral valve. Trace mitral valve regurgitation. Aortic valve sclerosis. No aortic valve regurgitation. Moderate tricuspid valve regurgitation. [id number]. Morphologically normal pulmonic valve. No pericardial effusion. 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 MEASUREMENTS (Male / Female) Normal Values FINDINGS Left Ventricle Left ventricular ejection fraction is estimated at 55 %. Right Ventricle Normal right ventricular size and systolic function. Right Atrium Moderately increased right atrial size. Left Atrium Moderately increased left atrial size. LA Appendage No thrombus visualized in the left atrial appendage. IA Septum Normal interatrial septum. Mitral Valve Mildly thickened mitral valve. Trace mitral valve regurgitation. Aortic Valve Aortic valve sclerosis. No aortic valve regurgitation. Tricuspid Valve Morphologically normal tricuspid valve. Moderate tricuspid valve regurgitation. [id number]. Pulmonic Valve Morphologically normal pulmonic valve. Pericardium No pericardial effusion. Aorta Grade II calcified plaque descending thoracic aorta.No mobile debris. Tony Plavac (Electronically Signed) Final Date: 23 November 2016 19:21
[2016-11-27] MEDS ORDERED: POTASSIUM CHLORIDE 10 MEQ TABLET PO SCH (09:00)
== END 2016-11-23 15:15 | disposition home or self-care (01) | DRG 310 ==
LOC: N.SDSINP 06:28 → N.OR 06:28 → N.SDSINP 06:30 → N.TELEN 15:11
PROVIDERS: ADMIT Internal Medicine Cardiovascular Disease; ATTEND Internal Medicine Cardiovascular Disease

== ENCOUNTER 2020-08-31 12:25 | Inpatient (IN) ==
[2020-08-31] MEDS ORDERED: ONDANSETRON 4 MG/2 ML VIAL IV PRN (12:41)
[2020-08-31] MEDS ORDERED: DEXTROSE 50% 25 GM/50 ML VIAL IV PRN (12:45)
[2020-08-31] MEDS ORDERED: GLUCAGON 1 MG VIAL IM PRN (12:45)
[2020-08-31] MEDS: SODIUM CHLORIDE 0.9% 1,000 ML IV SCH ×2 (14:28→21:11)
[2020-08-31] MEDS: ENOXAPARIN 40 MG/0.4 ML SYRINGE SUBCUT SCH (14:43)
[2020-08-31] MEDS: PIPERACILLIN/TAZOBACTAM 3,375 MG in SODIUM CHLORIDE 0.9% 100 ML IV SCH ×2 (14:43→20:58)
[2020-08-31] MEDS: INSULIN LISPRO 100 UNIT/ML SUBCUT SCH ×3 (14:43→21:03)
[2020-08-31] MEDS ORDERED: LACTATED RINGERS 1,000 ML IV ONE (15:53)
[2020-08-31] MEDS ORDERED: MORPHINE 4 MG/1 ML VIAL IV PRN ×2 (15:54)
[2020-08-31] MEDS: ASPIRIN EC 81 MG TABLET PO SCH (16:22)
[2020-08-31 17:10] LABS: Bilirubin,Urine Negative (Negative); Blood, Urine Small mg/dL (Negative); Glucose,Urine (UA) 50 mg/dL (Negative); Hyaline Casts,Urine 1 /LPF (0-3); Ketones,Urine Negative (Negative); Mucus,Urine Occasional /LPF (Occasional); Nitrite,Urine Negative (Negative); Protein,Urine 30 MG/DL; RBC,Urine 2 /HPF (0-4); Squamous Epithelial Cell,Urine Occasional /HPF (0-10); Urine Appearance CLEAR (Clear); Urine Color Yellow (Yellow); Urine Specific Gravity 1.017 (1.001-1.035)
[2020-08-31] MEDS: DOCUSATE SODIUM 100 MG CAPSULE PO SCH (20:57)
[2020-09-01] MEDS: INSULIN LISPRO 100 UNIT/ML SUBCUT SCH ×6 (02:07→22:51)
[2020-09-01] MEDS: ACETAMINOPHEN 325 MG TABLET PO PRN ×2 (03:31→20:18)
[2020-09-01] MEDS: SODIUM CHLORIDE 0.9% 1,000 ML IV SCH ×3 (04:30→20:22)
[2020-09-01] MEDS: PIPERACILLIN/TAZOBACTAM 3,375 MG in SODIUM CHLORIDE 0.9% 100 ML IV SCH ×3 (04:40→20:18)
[2020-09-01 06:42] LABS: Basophils % 0.4 % (0.0-0.8); Eosinophils # 0.1 10*3/uL (0.0-0.87); Eosinophils % 0.5 % (0.00-10.9); Hematocrit 32.4 VOL% (42.0-52.0); Hemoglobin 10.9 GM/DL (14.0-18.0); Immature Granulocytes % 0.4 %; Immature Granulocytes Absolute 0.04 #; Lymphocytes # 1.5 10*3/uL (1.4-4.0); Lymphocytes % 15.5 % (21.2-54.2); Mean Corpuscular HGB Conc 33.6 GM/DL (32-36); Mean Corpuscular Volume 84.2 FL (87-102); Mean Platelet Volume 9.5 FL (9.6-12.0); Monocytes % 9.3 % (1.7-12.7); Neutrophils % 73.9 % (38.7-73.9); Platelet Count 220 T/CUMM (130-400); Red Blood Count 3.85 MC/CUMM (3.8-5.5); Red Cell Distribution Width 13.9 % (9.3-17.3); White Blood Count 9.6 T/CUMM (4-12)
[2020-09-01 07:22] LABS: Albumin 2.6 G/DL (3.4-5.0); Bilirubin,Total 1.9 MG/DL (0.2-1.0); Calcium 9.1 MG/DL (8.5-10.1); Osmolality,Calculated 279.8 MOS/KG (273-304); Potassium 3.1 MMOL/L (3.5-5.1); Total Protein 6.6 G/DL (6.4-8.2)
[2020-09-01] MEDS: PANTOPRAZOLE 40 MG TABLET PO SCH (08:15)
[2020-09-01] MEDS: DOCUSATE SODIUM 100 MG CAPSULE PO SCH ×2 (08:15→20:18)
[2020-09-01] MEDS ORDERED: POTASSIUM CHLORIDE 20 MEQ TABLET PO PRN (08:35)
[2020-09-01] MEDS ORDERED: MAGNESIUM SULF RIDER 4 GM/100 ML PREMIX IV PRN (08:36)
[2020-09-01] MEDS ORDERED: MAGNESIUM SULF RIDER 2 GM/50 ML PREMIX IV PRN (08:36)
[2020-09-01] MEDS: ENOXAPARIN 40 MG/0.4 ML SYRINGE SUBCUT SCH (12:37)
[2020-09-01] MEDS ORDERED: INDOCYANINE GREEN 25 MG VIAL IV ONE (14:41)
[2020-09-02] MEDS: INSULIN LISPRO 100 UNIT/ML SUBCUT SCH ×6 (02:29→22:10)
[2020-09-02] MEDS: SODIUM CHLORIDE 0.9% 1,000 ML IV SCH ×5 (03:45→21:41)
[2020-09-02] MEDS: PIPERACILLIN/TAZOBACTAM 3,375 MG in SODIUM CHLORIDE 0.9% 100 ML IV SCH ×3 (05:43→21:46)
[2020-09-02 06:38] LABS: Basophils % 0.4 % (0.0-0.8); Eosinophils # 0.1 10*3/uL (0.0-0.87); Eosinophils % 0.6 % (0.00-10.9); Hematocrit 33.7 VOL% (42.0-52.0); Hemoglobin 11.1 GM/DL (14.0-18.0); Immature Granulocytes % 0.5 %; Immature Granulocytes Absolute 0.05 #; Lymphocytes # 1.1 10*3/uL (1.4-4.0); Lymphocytes % 10.8 % (21.2-54.2); Mean Corpuscular HGB Conc 32.9 GM/DL (32-36); Mean Corpuscular Volume 84.9 FL (87-102); Mean Platelet Volume 9.8 FL (9.6-12.0); Monocytes % 8.9 % (1.7-12.7); Neutrophils % 78.8 % (38.7-73.9); Platelet Count 260 T/CUMM (130-400); Red Blood Count 3.97 MC/CUMM (3.8-5.5); Red Cell Distribution Width 13.8 % (9.3-17.3); White Blood Count 10.4 T/CUMM (4-12)
[2020-09-02 07:10] LABS: Albumin 2.6 G/DL (3.4-5.0); Calcium 9.4 MG/DL (8.5-10.1); Osmolality,Calculated 278.8 MOS/KG (273-304); Potassium 3.4 MMOL/L (3.5-5.1); Total Protein 6.9 G/DL (6.4-8.2)
[2020-09-02] MEDS ORDERED: LIDOCAINE 2% 5 ML VIAL ONE (10:00)
[2020-09-02] MEDS ORDERED: fentaNYL 100 MCG/2 ML VIAL ONE ×2 (10:00→11:37)
[2020-09-02] MEDS ORDERED: GLYCOPYRROLATE 0.4 MG/2 ML VIAL ONE (10:00)
[2020-09-02] MEDS ORDERED: ROCURONIUM 50 MG/5 ML VIAL IV ONE (10:00)
[2020-09-02] MEDS ORDERED: MIDAZOLAM 2 MG/2 ML VIAL ONE (10:00)
[2020-09-02] MEDS ORDERED: ONDANSETRON 4 MG/2 ML VIAL ONE (10:00)
[2020-09-02] MEDS ORDERED: DESFLURANE 1 UNIT/15 MINUTE INH ONE ×2 (10:00→12:34)
[2020-09-02] MEDS ORDERED: NEOSTIGMINE 10 MG/10 ML VIAL ONE (10:00)
[2020-09-02] MEDS ORDERED: propofoL 200 MG/20 ML VIAL IV ONE (10:00)
[2020-09-02] MEDS ORDERED: TISSUE ADHESIVE 1 EACH APPLICATOR TOP ONE (10:34)
[2020-09-02] MEDS: POTASSIUM CHLORIDE RIDER 10 MEQ/100 ML PREMIX IV PRN ×3 (10:38→15:22)
[2020-09-02] MEDS ORDERED: LIDOCAINE 1%/EPI INJ 20 ML VIAL ONE (10:51)
[2020-09-02] MEDS ORDERED: BUPIVACAINE MPF 0.25% 30 ML VIAL ONE (10:51)
[2020-09-02] MEDS ORDERED: PHENYLEPHRINE 1 MG/10 ML SYRINGE IV ONE (11:19)
[2020-09-02] MEDS ORDERED: LACTATED RINGERS 1,000 ML IV SCH (11:30)
[2020-09-02] MEDS: PANTOPRAZOLE 40 MG TABLET PO SCH ×2 (12:51→21:51)
[2020-09-02] MEDS: ASPIRIN EC 81 MG TABLET PO SCH (12:51)
[2020-09-02] MEDS: DOCUSATE SODIUM 100 MG CAPSULE PO SCH ×2 (12:51→21:45)
[2020-09-02] MEDS ORDERED: FENOFIBRATE 145 MG TABLET PO PRN (13:11)
[2020-09-02] MEDS ORDERED: LANSOPRAZOLE 30 MG PO PRN (13:11)
[2020-09-02] MEDS: ACETAMINOPHEN 325 MG TABLET PO PRN (16:03)
[2020-09-02] MEDS ORDERED: ACETAMINOPHEN 500 MG TABLET PO ONE (17:25)
[2020-09-02 17:58] LABS: Basophils % 0.2 % (0.0-0.8); Hemoglobin 11.4 GM/DL (14.0-18.0); Immature Granulocytes % 0.7 %; Immature Granulocytes Absolute 0.07 #; Lymphocytes # 0.5 10*3/uL (1.4-4.0); Lymphocytes % 4.8 % (21.2-54.2); Mean Corpuscular HGB Conc 33.5 GM/DL (32-36); Mean Corpuscular Volume 84.6 FL (87-102); Mean Platelet Volume 9.5 FL (9.6-12.0); Monocytes % 8.3 % (1.7-12.7); Platelet Count 260 T/CUMM (130-400); Red Blood Count 4.02 MC/CUMM (3.8-5.5); Red Cell Distribution Width 13.8 % (9.3-17.3)
[2020-09-02 18:10] LABS: INR 1.1; PT Patient Result 12.3 SECS (10.5-12.0); Partial Thromboplastin Time 27.9 SECS (23.9-33.8)
[2020-09-02 18:16] LABS: Albumin 2.4 G/DL (3.4-5.0); Bilirubin,Total 1.3 MG/DL (0.2-1.0); Calcium 8.7 MG/DL (8.5-10.1); Osmolality,Calculated 283.7 MOS/KG (273-304); Potassium 3.9 MMOL/L (3.5-5.1); Total Protein 6.7 G/DL (6.4-8.2)
[2020-09-02 19:52] LABS: Bilirubin,Urine Negative (Negative); Blood, Urine Negative (Negative); Glucose,Urine (UA) 150 mg/dL (Negative); Ketones,Urine 20 mg/dL (Negative); Nitrite,Urine Negative (Negative); Protein,Urine 100 MG/DL; RBC,Urine 3 /HPF (0-4); Urine Appearance CLEAR (Clear); Urine Color Yellow (Yellow); Urine Specific Gravity 1.018 (1.001-1.035)
[2020-09-02] MEDS: SOTALOL 80 MG TABLET PO SCH (21:45)
[2020-09-02] MEDS: NIACIN ER 500 MG TABLET PO SCH (21:46)
[2020-09-03] MEDS: INSULIN LISPRO 100 UNIT/ML SUBCUT SCH ×6 (02:05→22:54)
[2020-09-03] MEDS: PIPERACILLIN/TAZOBACTAM 3,375 MG in SODIUM CHLORIDE 0.9% 100 ML IV SCH ×3 (04:59→21:55)
[2020-09-03] MEDS: SODIUM CHLORIDE 0.9% 1,000 ML IV SCH ×3 (05:32→17:45)
[2020-09-03 06:01] LABS: Basophils % 0.3 % (0.0-0.8); Eosinophils % 0.2 % (0.00-10.9); Hematocrit 31.5 VOL% (42.0-52.0); Hemoglobin 9.9 GM/DL (14.0-18.0); Immature Granulocytes % 0.7 %; Immature Granulocytes Absolute 0.08 #; Lymphocytes # 1.3 10*3/uL (1.4-4.0); Lymphocytes % 11.9 % (21.2-54.2); Mean Corpuscular HGB Conc 31.4 GM/DL (32-36); Mean Platelet Volume 9.6 FL (9.6-12.0); Monocytes % 9.8 % (1.7-12.7); Neutrophils % 77.1 % (38.7-73.9); Platelet Count 269 T/CUMM (130-400); Red Blood Count 3.58 MC/CUMM (3.8-5.5); Red Cell Distribution Width 13.9 % (9.3-17.3); White Blood Count 10.8 T/CUMM (4-12)
[2020-09-03 06:29] LABS: Albumin 2.3 G/DL (3.4-5.0); Bilirubin,Total 0.8 MG/DL (0.2-1.0); Calcium 9.1 MG/DL (8.5-10.1); Osmolality,Calculated 283.5 MOS/KG (273-304); Potassium 3.6 MMOL/L (3.5-5.1); Total Protein 6.4 G/DL (6.4-8.2)
[2020-09-03] MEDS ORDERED: LACTATED RINGERS 1,000 ML IV ONE (08:13)
[2020-09-03] MEDS: amLODIPine 10 MG TABLET PO SCH (08:57)
[2020-09-03] MEDS: DOXAZOSIN 4 MG TABLET PO SCH (08:57)
[2020-09-03] MEDS: DOCUSATE SODIUM 100 MG CAPSULE PO SCH ×2 (08:57→22:04)
[2020-09-03] MEDS: SOTALOL 80 MG TABLET PO SCH ×2 (08:57→22:04)
[2020-09-03] MEDS: SIMVASTATIN 10 MG TABLET PO SCH (08:57)
[2020-09-03] MEDS: PANTOPRAZOLE 40 MG TABLET PO SCH (08:57)
[2020-09-03 10:46] LABS: Hematocrit 30.3 VOL% (42.0-52.0); Hemoglobin 9.7 GM/DL (14.0-18.0)
[2020-09-03] MEDS ORDERED: POTASSIUM CHLORIDE 20 MEQ/15 ML UDCUP PO ONE (11:14)
[2020-09-03] MEDS ORDERED: MULTIVITAMIN (CENTRUM) TABLET PO SCH (12:55)
[2020-09-03] MEDS: ENOXAPARIN 40 MG/0.4 ML SYRINGE SUBCUT SCH (14:14)
[2020-09-03] MEDS: ACETAMINOPHEN 325 MG TABLET PO PRN (23:38)
[2020-09-04] MEDS: INSULIN LISPRO 100 UNIT/ML SUBCUT SCH ×6 (02:52→22:40)
[2020-09-04] MEDS: PIPERACILLIN/TAZOBACTAM 3,375 MG in SODIUM CHLORIDE 0.9% 100 ML IV SCH ×3 (05:19→22:20)
[2020-09-04 06:23] LABS: Basophils % 0.4 % (0.0-0.8); Eosinophils # 0.3 10*3/uL (0.0-0.87); Eosinophils % 2.6 % (0.00-10.9); Hematocrit 29.2 VOL% (42.0-52.0); Hemoglobin 9.1 GM/DL (14.0-18.0); Immature Granulocytes % 0.6 %; Immature Granulocytes Absolute 0.06 #; Lymphocytes # 1.5 10*3/uL (1.4-4.0); Lymphocytes % 15.8 % (21.2-54.2); Mean Corpuscular HGB Conc 31.2 GM/DL (32-36); Mean Corpuscular Volume 87.4 FL (87-102); Mean Platelet Volume 9.7 FL (9.6-12.0); Monocytes % 8.2 % (1.7-12.7); Neutrophils % 72.4 % (38.7-73.9); Platelet Count 279 T/CUMM (130-400); Red Blood Count 3.34 MC/CUMM (3.8-5.5); White Blood Count 9.7 T/CUMM (4-12)
[2020-09-04 06:41] LABS: Calcium 8.8 MG/DL (8.5-10.1); Osmolality,Calculated 283.3 MOS/KG (273-304); Potassium 3.6 MMOL/L (3.5-5.1)
[2020-09-04] MEDS: PANTOPRAZOLE 40 MG TABLET PO SCH (08:53)
[2020-09-04] MEDS: SOTALOL 80 MG TABLET PO SCH ×2 (08:53→22:20)
[2020-09-04] MEDS: amLODIPine 10 MG TABLET PO SCH (08:53)
[2020-09-04] MEDS: SIMVASTATIN 10 MG TABLET PO SCH (08:53)
[2020-09-04] MEDS: DOXAZOSIN 4 MG TABLET PO SCH (08:53)
[2020-09-04] MEDS: DOCUSATE SODIUM 100 MG CAPSULE PO SCH ×2 (08:53→22:21)
[2020-09-04] MEDS: SODIUM CHLORIDE 0.9% 1,000 ML IV SCH ×4 (08:54→20:00)
[2020-09-04] MEDS ORDERED: PHENOL 1.4% THROAT SPRAY 177 ML BOTTLE PO PRN (10:42)
[2020-09-04] MEDS: ENOXAPARIN 40 MG/0.4 ML SYRINGE SUBCUT SCH (14:29)
[2020-09-05] MEDS: INSULIN LISPRO 100 UNIT/ML SUBCUT SCH ×5 (02:49→18:04)
[2020-09-05] MEDS: ACETAMINOPHEN 325 MG TABLET PO PRN (02:51)
[2020-09-05] MEDS: PIPERACILLIN/TAZOBACTAM 3,375 MG in SODIUM CHLORIDE 0.9% 100 ML IV SCH (06:33)
[2020-09-05 08:36] LABS: Basophils % 0.4 % (0.0-0.8); Eosinophils # 0.3 10*3/uL (0.0-0.87); Eosinophils % 3.6 % (0.00-10.9); Hemoglobin 10.5 GM/DL (14.0-18.0); Immature Granulocytes % 0.5 %; Immature Granulocytes Absolute 0.04 #; Lymphocytes # 1.2 10*3/uL (1.4-4.0); Lymphocytes % 15.5 % (21.2-54.2); Mean Corpuscular HGB Conc 31.8 GM/DL (32-36); Mean Corpuscular Volume 87.1 FL (87-102); Mean Platelet Volume 9.1 FL (9.6-12.0); Monocytes % 8.2 % (1.7-12.7); Neutrophils % 71.8 % (38.7-73.9); Platelet Count 292 T/CUMM (130-400); Red Blood Count 3.79 MC/CUMM (3.8-5.5); Red Cell Distribution Width 13.9 % (9.3-17.3); White Blood Count 7.5 T/CUMM (4-12)
[2020-09-05 09:02] LABS: Albumin 2.2 G/DL (3.4-5.0); Bilirubin,Total 0.5 MG/DL (0.2-1.0); Osmolality,Calculated 280.4 MOS/KG (273-304); Potassium 3.5 MMOL/L (3.5-5.1); Total Protein 6.8 G/DL (6.4-8.2)
[2020-09-05] MEDS ORDERED: POTASSIUM CHLORIDE 20 MEQ TABLET PO ONE (09:30)
[2020-09-05] MEDS: PANTOPRAZOLE 40 MG TABLET PO SCH (09:43)
[2020-09-05] MEDS: DOXAZOSIN 4 MG TABLET PO SCH (09:43)
[2020-09-05] MEDS: SOTALOL 80 MG TABLET PO SCH ×2 (09:43→21:39)
[2020-09-05] MEDS: SIMVASTATIN 10 MG TABLET PO SCH (09:43)
[2020-09-05] MEDS: amLODIPine 10 MG TABLET PO SCH (09:44)
[2020-09-05] MEDS: DOCUSATE SODIUM 100 MG CAPSULE PO SCH ×2 (09:44→21:39)
[2020-09-05] MEDS: ASPIRIN EC 81 MG TABLET PO SCH (09:45)
[2020-09-05] MEDS: ENOXAPARIN 40 MG/0.4 ML SYRINGE SUBCUT SCH (14:46)
[2020-09-05] MEDS: NIACIN ER 500 MG TABLET PO SCH (21:39)
[2020-09-06] MEDS: INSULIN LISPRO 100 UNIT/ML SUBCUT SCH ×3 (00:24→07:15)
[2020-09-06 05:22] LABS: Basophils % 0.5 % (0.0-0.8); Eosinophils # 0.3 10*3/uL (0.0-0.87); Eosinophils % 4.1 % (0.00-10.9); Hematocrit 31.7 VOL% (42.0-52.0); Hemoglobin 10.3 GM/DL (14.0-18.0); Immature Granulocytes % 0.9 %; Immature Granulocytes Absolute 0.07 #; Lymphocytes # 1.5 10*3/uL (1.4-4.0); Lymphocytes % 20.2 % (21.2-54.2); Mean Corpuscular HGB Conc 32.5 GM/DL (32-36); Mean Corpuscular Volume 85.9 FL (87-102); Mean Platelet Volume 9.5 FL (9.6-12.0); Monocytes % 9.8 % (1.7-12.7); Neutrophils % 64.5 % (38.7-73.9); Platelet Count 321 T/CUMM (130-400); Red Blood Count 3.69 MC/CUMM (3.8-5.5); Red Cell Distribution Width 13.7 % (9.3-17.3); White Blood Count 7.4 T/CUMM (4-12)
[2020-09-06 05:34] LABS: Calcium 9.3 MG/DL (8.5-10.1); Osmolality,Calculated 282.4 MOS/KG (273-304); Potassium 3.7 MMOL/L (3.5-5.1)
[2020-09-06 07:28] VITALS: BP 149/74
[2020-09-06] MEDS: ASPIRIN EC 81 MG TABLET PO SCH (08:40)
[2020-09-06] MEDS: DOXAZOSIN 4 MG TABLET PO SCH (08:40)
[2020-09-06] MEDS: SIMVASTATIN 10 MG TABLET PO SCH (08:40)
[2020-09-06] MEDS: DOCUSATE SODIUM 100 MG CAPSULE PO SCH (08:40)
[2020-09-06] MEDS: amLODIPine 10 MG TABLET PO SCH (08:40)
[2020-09-06] MEDS: SOTALOL 80 MG TABLET PO SCH (08:41)
[2020-09-06] MEDS: PANTOPRAZOLE 40 MG TABLET PO SCH (08:41)
[2020-09-06] MEDS ORDERED: POTASSIUM CHLORIDE 10 MEQ TABLET PO SCH (09:00)
[2020-09-09] MEDS ORDERED: OMEGA 3 ACID ETHYL ESTERS 1 GM CAPSULE PO SCH (09:00)
[2020-09-09] MEDS ORDERED: POTASSIUM CHLORIDE 10 MEQ TABLET PO SCH (09:00)
== END 2020-09-06 11:03 | disposition home or self-care (01) | DRG 417 ==
LOC: N.5E → OBSVTOIN 13:18
PROVIDERS: ADMIT Internal Medicine; ATTEND Internal Medicine